=== PATIENT | female | born 1995 | race African-American/Black ===

== ENCOUNTER 2018-09-06 14:39 | Emergency (ER) | payer OTHER ==
[~2018-09-06] VITALS: Ht 180.3 cm; Wt 64.0 kg
[2018-09-06] MEDS ORDERED: SODIUM CHLORIDE 0.9% 1,000 ML IV ONE (16:18)
[2018-09-06 16:47] LABS: BASOPHILS % 0.3 % (0.0-2.0); EOSINOPHILS % 0.2 % (0.0-5.0); HEMATOCRIT. 42.1 % (36.0-48.0); HEMOGLOBIN. 14.4 g/dL (12.0-16.0); LYMPHOCYTES % 12.6 % (20.0-50.0); MEAN CORPUSCULAR HEMOGLOBIN 31.8 pg (28.0-32.0); MEAN CORPUSCULAR VOLUME 93.3 fL (81.0-99.0); MEAN PLATELET VOLUME 9.3 fl (7.4-10.4); MONOCYTES % 4.6 % (2.0-8.0); NEUTROPHILS % 82.3 % (40.0-76.0); PLATELET 248 x1000/uL (130-400); RED BLOOD CELL COUNT 4.52 mill/uL (4.2-5.4); RED CELL DISTRIBUTION WIDTH 13.8 % (11.6-14.6)
[2018-09-06 16:52] LABS: CHLORIDE 107 mEq/L (98-107)
[2018-09-06 17:46] VITALS: BP 128/60
== END 2018-09-06 17:49 | disposition home or self-care (01) ==
LOC: ER 14:56
DX: R55 Syncope and collapse (principal); F12.10 Cannabis abuse, uncomplicated
CPT/HCPCS: 36415; 80053; 81025; 85025; 93005; 96360; 99284; J7030

== ENCOUNTER 2021-03-14 02:27 | Emergency (ER) | payer MEDICAID, OTHER ==
[~2021-03-14] VITALS: Ht 180.3 cm; Wt 76.0 kg
[2021-03-14 03:45] VITALS: BP 139/79
[2021-03-14] MEDS ORDERED: SODIUM CHLORIDE 0.9% IRRIG SOLUTION 1000ML IR ONE (06:00)
[2021-03-14] MEDS ORDERED: CARB15DR63 RIGHT EAR (06:44)
== END 2021-03-14 06:58 | disposition home or self-care (01) ==
LOC: ER 02:27
DX: H61.21 Impacted cerumen, right ear (principal)
CPT/HCPCS: 99282